=== PATIENT | female | born 1970 | race American Indian/Alaskan Native ===

== ENCOUNTER 2021-08-12 02:46 | Emergency (ER) | payer OTHER ==
[2021-08-12 02:50] VITALS: BP 133/78
[2021-08-12 03:16] LABS: Hematocrit 37.7 % (30.3-42.9); Hemoglobin 12.2 gm/dl (10.1-14.3); Mean Corpuscular HGB Conc 32 % (30-34); Mean Corpuscular Volume 80 fl (79-97); Platelet Count 177 K/mm3 (140-440)
--- NOTE | 2021-08-12 03:44 | XRay Report ---
XR chest routine 2V INDICATION / CLINICAL INFORMATION: CP. COMPARISON: None available. FINDINGS: SUPPORT DEVICES: None. HEART /PULMONARY VASCULATURE: No significant abnormality. LUNGS / PLEURA: Low lung volumes. There are mild basilar airspace opacities. No sizable pleural effus ion. No pneumothorax. ADDITIONAL FINDINGS: No significant additional findings. IMPRESSION: Patchy bibasilar airspace disease, suspicious for pneumonia. Signer Name: Isaiah Clifton MD Signed: 08/12/2021 3:40 AM Workstation Name: [id number]
[2021-08-12 03:49] LABS: Alanine Aminotransferase 14 units/L (7-56); Albumin 3.8 g/dL (3.9-5); Blood Urea Nitrogen 9 mg/dL (7-17); Calcium 9.2 mg/dL (8.4-10.2); Hemolysis Index 5
[2021-08-12 03:52] LABS: BUN/Creatinine Ratio 13
[2021-08-12 04:20] LABS: Total Cells Counted 100
[2021-08-12 04:21] LABS: Anisocytosis 1+; Platelet Estimate Consistent w Auto
--- NOTE | 2021-08-12 10:37 | Electrocardiograph Report ---
[facility] Test Date: 2021-08-12 Test Time: 01:59:42 Pat Name: YA TAO Department: Room: Gender: F Shucker: ANISHA : 1970 Requested By: IFEANYI WHARTON Order Number: [id number] Reading MD: Amilcar Mckeon Measurements Intervals Bypro Rate: 104 P: 73 PA: 137 QRS: 115 QRSD: 77 T: 57 QT: 420 QTc: 553 Interpretive Statements Sinus tachycardia Biatrial enlargement nonspecific st-t in lateral leads Prolonged QT interval No previous ECG available for comparison Electronically Signed On 08-12-2021 10:36:30 EST by Amilcar Mckeon
== END 2021-08-12 06:03 | disposition left against medical advice (07) ==
LOC: ED 02:46
DX: R07.9 Chest pain, unspecified (principal); Z53.21 Procedure and treatment not carried out due to patient leaving prior to being seen by health care provider
CPT/HCPCS: 36415; 71046; 80053; 84484; 85007; 85025; 93005